=== PATIENT | female | born 1990 | race African-American/Black ===

== ENCOUNTER 2017-02-07 08:18 | Emergency (ER) | payer OTHER ==
[2017-02-07 08:26] VITALS: BP 119/73
--- NOTE | 2017-02-08 10:34 | ED ---
Jammie Carroll Matthew, scribed for Diego Castro MD on 02/07/17 at 0926 . GI/ HPI - HPI Summary HPI Summary: A 26 y/o female presents to the ED with c/o of blood in her stools since this morning. She saw streaks of blood in the stool. Associated symptoms include abdominal pain for the past 2 days, which is described as cramping. Initially 2 days ago, she was experiencing dizziness and fatigue in the mornings followed by chills at night. She then went to her PCP and was prescribed an Abx to begin tomorrow if her symptoms didn't improve. Associated symptoms today include diarrhea - described as watery beginning 24 hours ago, nausea, fever, and body aches. The patient denies vomiting and abdominal pain with palpation. - History of Current Complaint Chief Complaint: EDAbdPain Time Seen by Provider: 02/07/17 08:36 Stated Complaint: BLOOD IN STOOL Hx Obtained From: Patient Onset/Duration: Started Days Ago, Atraumatic, Still Present Timing: Constant Severity: Moderate Current Severity: Moderate Pain Intensity: 8 Location of Pain: Diffuse Pain Characteristics: Cramping Associated Signs and Symptoms: Positive: Dizziness, Nausea, Blood-Streaked Stool , Blood w/Stool, Diarrhea - described as watery, Fever, Chills, Abdominal Pain, Other: - Fatigue. Negative: Vomiting - Allergy/Home Medications Allergies/Adverse Reactions: Allergies Allergy/AdvReac Type Severity Reaction Status Date / Time Dicyclomine Allergy Anaphylatic Verified 02/07/17 08:20 Shock PMH/Surg Hx/FS Hx/Imm Hx Endocrine/Hematology History: Denies: Hx Diabetes, Hx Thyroid Disease Cardiovascular History: Denies: Hx Hypertension Respiratory History: Denies: Hx Asthma, Hx Chronic Obstructive Pulmonary Disease (COPD) GI History: Denies: Hx Ulcer Infectious Disease History: No Infectious Disease History: Denies: Hx Clostridium Difficile, Hx Hepatitis, Hx Human Immunodeficiency Virus (HIV), Hx of Known/Suspected MRSA, Hx Shingles, Hx Tuberculosis, Hx Known/ Suspected VRE, Hx Known/Suspected VRSA, History Other Infectious Disease, Traveled Outside the [place] in Last 30 Days - Family History Known Family History: Positive: Unknown - Social History Alcohol Use: Occasionally Substance Use Type: Reports: None Smoking Status (MU): Current Some Day Smoker Amount Used/How Often: every 2-3 mos Review of Systems Positive: Fever, Chills Eyes: Negative ENT: Negative Cardiovascular: Negative Respiratory: Negative Positive: Abdominal Pain, Diarrhea - described as watery , Nausea. Negative: Vomiting Genitourinary: Other - Blood w/ stool Positive: Myalgia - Body aches Skin: Negative Neurological: Other - Dizziness Psychological: Normal All Other Systems Reviewed And Are Negative: Yes Physical Exam Triage Information Reviewed: Yes Vital Signs On Initial Exam: Initial Vitals Temp Pulse Resp BP Pulse Ox 96.7 F 91 18 119/73 100 02/07/17 08:21 02/07/17 08:21 02/07/17 08:21 02/07/17 08:21 02/07/17 08:21 Vital Signs Reviewed: Yes Appearance: Positive: Well-Appearing, No Pain Distress Skin: Positive: Warm, Dry Head/Face: Positive: Normal Head/Face Inspection Eyes: Positive: Normal ENT: Positive: Normal ENT inspection Neck: Positive: Supple Respiratory/Lung Sounds: Positive: Clear to Auscultation, Breath Sounds Present Cardiovascular: Positive: RRR, Pulses are Symmetrical in both Upper and Lower Extremities Abdomen Description: Positive: Nontender, Soft Bowel Sounds: Positive: Present Musculoskeletal: Positive: Normal Neurological: Positive: Normal Psychiatric: Positive: Affect/Mood Appropriate Diagnostics - Vital Signs Vital Signs Temp Pulse Resp BP Pulse Ox 02/07/17 08:21 96.7 F 91 18 119/73 100 - Laboratory Lab Statement: Any lab studies that have been ordered have been reviewed, and results considered in the medical decision making process. GIGU Course/Dx - Course Course Of Treatment: Ms. Tolentino presented with bloody diarrhea. She was unwilling to have any W/U or therapy. I wanted to start her on Cipro because of the blood and sent a script but she left hurriedly and I'm not sure she will pick it up. - Diagnoses Provider Diagnoses: Dysentery Discharge - Discharge Plan Condition: Stable Disposition: AGAINST MEDICAL ADVICE Prescriptions: Ciprofloxacin TAB* [Cipro Tab*] 500 mg PO BID #20 tab Patient Education Materials: Gastroenteritis (ED), Ciprofloxacin (By mouth) Referrals: Alverto Del Rio MD [Medical Doctor] - 3 Days Additional Instructions: Please follow-up with your primary care physician in 3 days. The documentation as recorded by the Jammie linton Matthew accurately reflects the service I personally performed and the decisions made by me, Digeo Castro MD.
== END 2017-02-07 10:14 | disposition left against medical advice (07) ==
LOC: ED 08:18
DX: A09 Infectious gastroenteritis and colitis, unspecified (principal); R50.9 Fever, unspecified; R10.9 Unspecified abdominal pain; R19.7 Diarrhea, unspecified; R11.0 Nausea; R42 Dizziness and giddiness
CPT/HCPCS: 99282

== ENCOUNTER 2017-03-23 14:59 | Inpatient (IN) | payer OTHER ==
[2017-03-23] MEDS ORDERED: Ondansetron INJ* 2 MG/ML VIAL IV ONE ×2 (18:03→21:16)
[2017-03-23] MEDS ORDERED: Morphine INJ* 4 MG/ML 1 ML SYRINGE IV ONE ×2 (18:03→21:27)
[2017-03-23] MEDS ORDERED: NS 0.9% 1000 ML* 1,000 ML IV ONE (18:04)
[2017-03-23 18:09] LABS: Urine Bacteria Absent (Absent); Urine Bilirubin Negative (Negative); Urine Glucose Negative (Negative); Urine Nitrite Negative (Negative)
[2017-03-23 18:12] LABS: Hematocrit 38 % (35-47); Hemoglobin 12.1 g/dl (12.0-16.0); Mean Corpuscular HGB Conc 32 g/dl (31-36); Mean Corpuscular Hemoglobin 25 pg (27-31); Mean Corpuscular Volume 80 fL (80-97); Mean Platelet Volume 8 um3 (7.4-10.4); Red Blood Count 4.75 10^6/ul (4.0-5.4); Red Cell Distribution Width 15 % (10.5-15)
[2017-03-23 18:14] LABS: Add Diff/Slide Review? Slide Review Added; Comments Flag Yes
[2017-03-23 18:29] LABS: Albumin 3.9 g/dL (3.2-5.2); BUN/Creatinine Ratio 24.7 (8-20); C Reactive Protein 5.37 mg/L (< 5.00); Calcium 8.9 mg/dL (8.6-10.3); EGFR African American 117.5 (>60); EGFR Non-African American 91.3 (>60); Globulin 3.4 g/dL (2-4); Potassium 4.3 mmol/L (3.5-5.0); Total Bilirubin 0.3 mg/dL (0.2-1.0); Total Protein 7.3 g/dL (6.4-8.9)
[2017-03-23] MEDS ORDERED: Iohexol 300* (CONTRAST) 10 ML SDV IV ONE (19:02)
--- NOTE | 2017-03-23 20:34 | RAD ---
INDICATION: Diarrhea with C. difficile. Assess for colitis and abscess. COMPARISON: January 18, 2014 CT. TECHNIQUE: Multidetector CT images were obtained from the lung bases to the ischial tuberosities with 121 mL Omnipaque 300 IV and oral contrast. Multiplanar reformation. REPORT: Unremarkable visualized inferior thorax. 0.7 cm diameter hypodense lesion at the subcapsular RIGHT anterior hepatic segment is only mildly enlarged compared with the 2013 exam without concern. No additional focal hepatic lesions or biliary dilatation. Unremarkable gallbladder, pancreas, spleen. Negative for CT abnormality of the upper GI, small bowel, or retrocecal appendix. Enteric contrast extends to the proximal transverse colon. The colon is unremarkable through the descending segment. While incomplete distention limits assessment there is suggestion of mild long segment mural thickening at the sigmoid colon new compared with the prior exam. Negative for colonic diverticulosis or appreciable perienteric inflammatory change. Negative for ascites, free air, hernias. Normal adrenal glands. Unremarkable kidneys with symmetric nephrograms and pyelograms. Unremarkable nondilated ureters and partially distended urinary bladder. Anteverted uterus with IUD in place. Unremarkable adnexal regions. Multiple RIGHT lower quadrant lymph nodes measuring up to 1.1 cm diameter. Negative for retroperitoneal lymphadenopathy. Normal diameter abdominal aorta and iliac arteries. Physiologic partial distention of the IVC. Negative for suspicious osseous lesions. IMPRESSION: 1. While incompletely distention limits assessment there is suggestion of mild long segment mural thickening of the sigmoid colon new compared with the January 18, 2014 exam. Consider infectious colitis as well as potential inflammatory bowel disease. 2. Few RIGHT lower quadrant mesenteric lymph nodes measuring up to 1.1 cm short axis diameter are only mildly enlarged compared with the 2013 exam and likely reactive.
[2017-03-23] MEDS ORDERED: metroNIDAZOLE IV 500 MG/100ML* 500 MG/100 ML BAG IVPB ONE (21:27)
--- NOTE | 2017-03-23 21:29 | ED ---
Madeline Carroll Alok, scribed for Bobby Turcios MD on 03/23/17 at 2043 . Progress - Progress Note Progress Note: Abd/Pel CT - IMPRESSION: 1. While incompletely distention limits assessment there is suggestion of mild long segment mural thickening of the sigmoid colon new compared with the December exam. Consider infectious colitis as well as potential inflammatory bowel disease. 2. Few RIGHT lower quadrant mesenteric lymph nodes measuring up to 1.1 cm short axis diameter are only mildly enlarged compared with the 2013 exam and likely reactive. dx infectious colitis admit hospitalist stable - EKG/XRAY/CT CT: Abd/Pel CT - See note Course/Dx - Diagnoses Provider Diagnoses: Abdominal pain The documentation as recorded by the Madeline linton Alok accurately reflects the service I personally performed and the decisions made by me, Bobby Turcios MD.
[2017-03-23] MEDS ORDERED: NS 0.9% 1000 ML* 2,000 ML IV ONE (21:39)
[2017-03-23] MEDS ORDERED: Morphine INJ* 4 MG/ML 1 ML SYRINGE IV PRN (21:51)
[2017-03-23] MEDS: Vancomycin CAP* 125 MG CAP PO SCH (22:57)
[2017-03-24] MEDS: Ondansetron INJ* 2 MG/ML VIAL IV PRN ×4 (00:13→19:39)
--- NOTE | 2017-03-24 00:29 | HP ---
HOSPITAL MEDICINE HISTORY AND PHYSICAL: DATE OF ADMISSION: 03/23/17 PRIMARY CARE PHYSICIAN: Dr. Alverto Del Rio. ATTENDING PHYSICIAN: Juan Rocha MD *(dictation provided by Belkis Eastman NP) CHIEF COMPLIANT: Diarrhea. HISTORY OF PRESENT ILLNESS: Ms. Tolentino is a 26-year-old female with no significant past medical history who originally presented to our hospital on with complaint of blood in the stool and abdominal pain. She states that she had seen her primary care physician and was started on antibiotics. It was felt that she likely had gastroenteritis and Dr. Castro concurred that she should start Cipro, which had been provided to her by her primary care physician. Ms. Tolentino states that she took her Cipro and her symptoms resolved; however, shortly thereafter, she developed diarrhea that was quite severe. She was having 10 to 12 bowel movements per day. She saw her primary care physician and had a positive culture for C. difficile on 03/10/17. I also note that culture did show positivity for Klebsiella oxytoca. The patient was started on Flagyl orally. She stated that her diarrhea did resolve. She states that despite the severity of the diarrhea she was having that she did not fel unwell in [facility]. She felt that the diarrhea did taper off. She finished her Flagyl 2 to 3 days ago and today noted the onset of severe diarrhea again with at least 12 bloody bowel movements today. Whereas before, she did not fell unwell with the diarrhea, now she feels quite sick. She feels achy and feverish. She denies any nausea. She has lower abdominal pain with cramping. She has myalgias and arthralgias. In the emergency room, Ms. Tolentino had a repeat cultures drawn and her stool cultures sent and those are pending. The stool occult blood are positive. She had a CT abdomen and pelvis, which showed concern for mild long segment mural thickening of the sigmoid colon, which is new. She has a very mild leukocytosis at 12. Her CRP is not elevated at only 5.37. She is febrile with a temperature of 101.2. She is not tachycardic. Her blood pressure is running on the lower side, currently 108/62. PAST MEDICAL HISTORY: C. difficile colitis, diagnosed 03/10/17, treated with Flagyl. MEDICATIONS: 1. Prozac 40 mg p.o. daily. 2. Gabapentin 600 mg p.o. q.i.d. 3. Lactobacillus daily. 4. Clonidine 0.1 mg p.o. daily p.r.n. ALLERGIES: To DICYCLOMINE. FAMILY HISTORY: The patient reports her parents are alive and well, shows no pertinent family history. SOCIAL HISTORY: No reported alcohol, tobacco, or drug use. The patient is a graduate of [employer] and is currently here at the [email or web address]. REVIEW OF SYSTEMS: A 14-point review of systems was completed with Ms. Tolentino and all those not mentioned above were negative. PHYSICAL EXAMINATION GENERAL: Ms. Tolentino is lying in bed. She is in no acute distress. She is calm and cooperative to my examination. VITAL SIGNS: Temperature 101.2, pulse rate 95, respiratory rate 17, O2 saturation 99% on room air, and blood pressure 108/62. LUNGS: Clear to auscultation bilaterally with no accessory muscle use and good aeration. HEART: S1 and S2. No murmur, rub, or gallop and regular. ABDOMEN: Soft. It is tender to palpation in the lower abdomen. Bowel sounds are positive. EXTREMITIES: No cyanosis or edema. NEURO: She is alert and oriented x3. She moves all extremities equally. There is no facial asymmetry or focal weakness. Extraocular movements are intact. SKIN: Intact. DIAGNOSTIC STUDIES/LAB DATA: WBC 12.0, hemoglobin 12.1, hematocrit 38, and platelet count 384. Sodium 133, potassium 4.3, chloride 105, serum bicarbonate 23, BUN 19, creatinine 0.76, glucose 121, and lactic acid 0.9. CRP 5.37. Urine shows trace leuk esterase only. Abdomen and pelvis CT is read as follows, "While incomplete distention limits the assessment, there is suggestion of mild long segment mural thickening of the sigmoid colon, new compared with the 01/18/14 exam. Consider infectious colitis as well as potential inflammatory bowel disease. A few right lower quadrant mesenteric lymph nodes, measuring up to 1.1 cm in the short axis diameter are only mildly enlarged, compared with the 2014 exam and likely reactive." ASSESSMENT AND PLAN: Ms. Tolentino is a 26-year-old female who was treated with ciprofloxacin for diarrhea and fever, and thereafter developed worsening diarrhea and C. difficile colitis. She has been treated with Flagyl, but at the conclusion of the Flagyl, she is now again having severe diarrhea up to 12 bouts per day. Our plans are for inpatient admission to the hospital as I expect her length of stay to be greater than 2 days for the followin. C. difficile colitis: Plan to treat with IV Flagyl and oral vancomycin due to severity for illness. I do note that there is Klebsiella oxytoca on the stool culture from 03/10/17 as well. Plan to consult Infectious Diseases tomorrow if Dr. Allen is available for his consultation. The patient will have intravenous fluid. She has had 3 L of we will continue with maintenance fluids and additional fluid as need. Her lactic acid is normal. Blood cultures have been sent. Start pain medications p.r.n. 2. DVT prophylaxis: With early mobility. 3. Disposition: To medical floor. TIME SPENT: Approximately 60 minutes was spent in the admission of this patient , more than half of the time was spent with the patient at the bedside reviewing the events leading up to this hospitalization, performing the physical examination, and reviewing my plan of care. BELKIS EASTMAN NP CC: Dr. Del Rio* [id number]/[facility] #: [id number] SUL[place]
[2017-03-24] MEDS: Acetaminophen TAB* 325 MG PO PRN ×3 (01:59→18:14)
[2017-03-24] MEDS ORDERED: HYDROmorphone* 2 MG/ML 1 ML SYR ONE (03:13)
[2017-03-24] MEDS ORDERED: diPHENhydraMINE IV* 50 MG/ML 1 ml VIAL (BENADRYL) ONE (05:12)
[2017-03-24] MEDS ORDERED: diPHENhydraMINE PO* 50 MG ONE (05:15)
[2017-03-24] MEDS: diPHENhydraMINE PO* 50 MG PO ONE ×2 (05:16→05:21)
[2017-03-24] MEDS: metroNIDAZOLE IV 500 MG/100ML* 500 MG/100 ML BAG IVPB SCH ×3 (05:32→21:52)
[2017-03-24] MEDS: Morphine INJ* 2 MG/ML 1 ML SYRINGE IV PRN ×4 (05:33→13:30)
[2017-03-24 06:58] LABS: Hematocrit 35 % (35-47); Hemoglobin 11.2 g/dl (12.0-16.0); Mean Corpuscular HGB Conc 32 g/dl (31-36); Mean Corpuscular Hemoglobin 26 pg (27-31); Mean Corpuscular Volume 81 fL (80-97); Mean Platelet Volume 7 um3 (7.4-10.4); Red Blood Count 4.33 10^6/ul (4.0-5.4); Red Cell Distribution Width 15 % (10.5-15)
[2017-03-24 07:38] LABS: BUN/Creatinine Ratio 13.5 (8-20); Calcium 8.5 mg/dL (8.6-10.3); EGFR Non-African American 95.6 (>60)
[2017-03-24 07:43] LABS: Potassium 3.9 mmol/L (3.5-5.0)
[2017-03-24] MEDS ORDERED: PROCHLORPERAZINE INJ 5 MG/ML 2 ML VIAL ONE (09:22)
[2017-03-24] MEDS: PROCHLORPERAZINE INJ 5 MG/ML 2 ML VIAL IV PRN ×3 (09:31→22:33)
[2017-03-24] MEDS: Vancomycin CAP* 125 MG CAP PO SCH ×4 (10:41→21:03)
[2017-03-24] MEDS: Gabapentin CAP(*) 300 MG PO SCH ×4 (11:23→21:03)
[2017-03-24] MEDS: FLUoxetine CAP* 20 MG PO SCH (13:31)
--- NOTE | 2017-03-24 14:04 | CONS ---
CONSULTATION REPORT: DATE OF CONSULT: 03/24/17 REQUESTING PROVIDER: Belkis Eastman NP. CONSULTING SERVICE: Infectious Disease. REASON FOR CONSULTATION: Diarrhea, abdominal pain, fever. IMPRESSION: 1. Approximately 3 weeks of blood diarrhea, sweats, fever, anorexia, tenesmus, partial improvement with Cipro and then with Flagyl, but no resolution of any symptoms. The differential diagnosis includes bacterial colitis, Clostridium difficile infection, though with a degree of bloody stool that seemed a little bit unlikely as well as lack of significant response to Flagyl, she did grow Klebsiella oxytoca. Stool culture at the start of her illness which is associated with an antibiotic associated diarrhea, the treatment of which is to stop antibiotics. It could be that she had an initial viral or bacterial colitis treated with Cipro that then led to flare-up of this colitis due to Klebsiella, which is known to cause right-sided abdominal pain and bloody area which she has; however, she also has inflammation of the sigmoid colon on a CT scan, which I think is less typical of Klebsiella-related antibiotic associated diarrhea. Noninfectious considerations including inflammatory bowel disease are on the differential diagnosis. 2. Diffuse abdominal pain. 3. Fever. Depression. RECOMMENDATION: 1. Treated with vancomycin and IV Flagyl while awaiting the C. diff test to see if there is any therapeutic response that would suggest C. difficile is primary pathogen here. They are not active against Klebsiella, so in effect we are also stopping any antibiotics that would continue to precipitate an antibiotic associated diarrhea due to Klebsiella infection. If she is not having any improvement and all the stool testing is negative, it would be important to ask GI to see her and consider a flexible sigmoidoscopy for biopsy. HISTORY OF PRESENT ILLNESS: This is a 26-year-old woman with about 3 weeks of diarrhea, admitted with worsening diarrhea and abdominal pain. Her last formed stool was a little over 3 weeks, then she developed bloody diarrhea multiple times a day with some urgency. She had chills, sweats, lost her appetite. She was treated with oral ciprofloxacin by her primary care doctor and she had a little bit of improvement but did not get back to even soft stools, but after she stopped, it seemed to become more severe, 10 to 12 bowel movements per day, so she saw her primary again. A C.diff PCR was positive, 03/10/17. A stool culture then grew Klebsiella oxytoca as well. She was started on oral Flagyl with a decrease in the frequency of stools, but stools did not become more formed and the abdominal pain did not go away. She could not eat either. After she stopped the Flagyl, she thinks the frequency got worse about 2 or 3 days later and now is back to having 10 to 12 bloody bowel movements a day with diffuse abdominal pain, but worse on the right and is crampy in nature as high as 10/10. She has had fevers, chills, and sweats and no appetite. She has had no rash or joint pain. She does have a feeling of tenesmus and pain with a bowel movement. She came to the hospital yesterday. White blood cell count was 12,000. She was started on IV Flagyl and oral vanco. C-reactive protein was 5. Urinalysis was negative. She had a CT of the abdomen and pelvis that showed mural thickening of the sigmoid colon, new compared to 01/18/14. There are right lower quadrant mesenteric lymph nodes. PAST MEDICAL HISTORY: Depression. MEDICATIONS: 1. Tylenol. 2. Fluoxetine. 3. Gabapentin. 4. Vancomycin 125 mcg by mouth 4 times a day. 5. Flagyl 500 mg every 8 hours. ALLERGIES: DICYCLOMINE. FAMILY HISTORY: No recurrent infections. SOCIAL HISTORY: She lives in [place]. Works in an accounting firm. She has had no travel. She is recently from [place]. Has not been back there recently. She has had no new partners. Pet dog at home. REVIEW OF SYSTEMS: All negative, the full review of systems except as noted above. PHYSICAL EXAM: Temperature 37, heart rate 80, respiratory rate 18, blood pressure 102/58, O2 sat 100% on room air. In general, she is awake, appears uncomfortable. Neurologic: She is oriented x3. Follows all commands. HEENT: There is no conjunctival hemorrhage. Oropharynx is without lesions. Neck is supple without nuchal rigidity. Lymph Nodes: There is no cervical, supraclavicular, inguinal, axillary or epitrochleal lymphadenopathy. Heart is regular rate and rhythm without murmurs, rubs or gallops. Lungs are clear to auscultation bilaterally. Abdomen: Decreased bowel sounds throughout. The abdomen is soft. There is right-sided tenderness to palpation, not particularly right lower quadrant tenderness. There is no rebound. There is no bloating. Skin: There is no rash or splinter hemorrhages. Musculoskeletal : There is no spine tenderness to palpation or joint synovitis. DIAGNOSTIC STUDIES/LAB DATA: White blood cell count 9, hemoglobin 11, platelets 325. Creatinine is 0.7. Please see impressions and recommendations outlined above. Thanks for asking me to see Ms. Tolentino in consultation. [id number]/[facility] #: [id number] [place]
--- NOTE | 2017-03-24 14:52 | PN ---
Subjective Date of Service: 03/24/17 Interval History: This is an otherwise healthy 26 yo female who presented with c/o bloody diarrhea. Patient was treated with Flagyl for Cdiff after a positive stool sample, she was also positive for Klebsiella at that time as well. Her abd pain and stooling had improved with the Flagyl but became worse again ~2d after completing her Rx. She has been started on oral Vanco and IV Flagyl here and ID consult was requested. Patient reports little to no improvement in her symptoms since admission. She estimates she has had ~7 BMs today that are still grossly bloody. She is nauseated without vomiting. No appetite. Objective Active Medications: Acetaminophen (Tylenol Tab*) 650 mg PO Q6H PRN PRN Reason: FEVER/PAIN Last Admin: 03/24/17 12:40 Dose: 650 mg Fluoxetine HCl (Prozac Cap*) 40 mg PO DAILY [facility] Last Admin: 03/24/17 13:31 Dose: 40 mg Gabapentin (Neurontin Cap(*)) 600 mg PO QID [facility] Last Admin: 03/24/17 13:31 Dose: 600 mg Metronidazole/Sodium Chloride (Flagyl 500 Mg Ivpb*) 500 mg in 100 mls @ 100 mls /hr IVPB Q8H [facility] Last Admin: 03/24/17 13:31 Dose: 100 mls/hr Lactated Ringer's (Lactated Ringers 1000 Ml Bag*) 1,000 mls @ 150 mls/hr IV PER RATE [facility] Last Admin: 03/24/17 10:52 Dose: 150 mls/hr Morphine Sulfate (Morphine Inj (Syringe)*) 4 mg IV Q2H PRN PRN Reason: PAIN Ondansetron HCl (Zofran Inj*) 4 mg IV Q4H PRN PRN Reason: NAUSEA Last Admin: 03/24/17 10:40 Dose: 4 mg Prochlorperazine Edisylate (Compazine Inj*) 5 mg IV Q6H PRN PRN Reason: NAUSEA/VOMITING Last Admin: 03/24/17 09:31 Dose: 5 mg Vancomycin HCl (Vancomycin Cap*) 125 mg PO QID [facility] Last Admin: 03/24/17 13:31 Dose: 125 mg Vital Signs: Temp Pulse Resp BP Pulse Ox 100.9 F 86 18 92/51 100 03/24/17 12:16 03/24/17 12:16 03/24/17 13:31 03/24/17 12:16 03/24/17 12:16 Appearance: Uncomfortable appearing young female lying in a hospital bed Neck: NL Appearance and Movements; NL JVP Respiratory: Symmetrical Chest Expansion and Respiratory Effort, Clear to Auscultation Cardiovascular: NL Sounds; No Murmurs; No JVD, RRR Abdominal: - - abd soft, BS present, some diffuse TTP Extremities: No Edema Skin: No Rash or Ulcers Neurological: Alert and Oriented x 3 Result Diagrams: 03/24/17 06:51 03/24/17 06:51 Diagnostic Imaging: CT abd/pelvis - possible sigmoid colon thickening Assess/Plan/Problems-Billing Assessment: This is an otherwise healthy 26 yo female who presents with complaints of abd pain, bloody diarrhea after treatment for Cdiff - Patient Problems (1) Colitis Comment: Presumed infectious Appreciate ID consult Stool sample from 03/10 was positive for Cdiff and Klebsiella No improvement since admission with IV Flagyl and oral Vanco Repeat stool testing pending Cont current treatment Status and Disposition: Inpatient
[2017-03-24] MEDS: Morphine INJ* 4 MG/ML 1 ML SYRINGE IV PRN ×3 (16:16→22:34)
[2017-03-24] MEDS ORDERED: Ibuprofen TAB* 800 MG PO ONE ×2 (18:58→19:03)
[2017-03-25] MEDS: Ondansetron INJ* 2 MG/ML VIAL IV PRN ×4 (02:25→18:26)
[2017-03-25] MEDS: Morphine INJ* 4 MG/ML 1 ML SYRINGE IV PRN ×7 (02:26→23:03)
[2017-03-25] MEDS: metroNIDAZOLE IV 500 MG/100ML* 500 MG/100 ML BAG IVPB SCH ×2 (05:34→14:35)
[2017-03-25] MEDS: Gabapentin CAP(*) 300 MG PO SCH ×4 (08:11→20:16)
[2017-03-25] MEDS: Vancomycin CAP* 125 MG CAP PO SCH ×4 (08:12→20:17)
[2017-03-25] MEDS: FLUoxetine CAP* 20 MG PO SCH (08:12)
[2017-03-25] MEDS: PROCHLORPERAZINE INJ 5 MG/ML 2 ML VIAL IV PRN ×2 (09:06→15:56)
[2017-03-25 09:45] LABS: Hematocrit 32 % (35-47); Hemoglobin 10.1 g/dl (12.0-16.0); Mean Corpuscular HGB Conc 32 g/dl (31-36); Mean Corpuscular Hemoglobin 26 pg (27-31); Mean Corpuscular Volume 81 fL (80-97); Mean Platelet Volume 7 um3 (7.4-10.4); Red Blood Count 3.88 10^6/ul (4.0-5.4); Red Cell Distribution Width 15 % (10.5-15); White Blood Count 5.8 10^3/ul (3.5-10.8)
--- NOTE | 2017-03-25 09:57 | PN ---
Subjective Date of Service: 03/25/17 Interval History: Patient reports some improvement in symptoms. Still having freq diarrhea (~1/h ) but less blood present. Still having abd pain, but more tolerable. Still unable to tolerate anything orally. Reports dizziness and nausea with ambulation. Objective Active Medications: Acetaminophen (Tylenol Tab*) 650 mg PO Q6H PRN PRN Reason: FEVER/PAIN Last Admin: 03/24/17 18:14 Dose: 650 mg Fluoxetine HCl (Prozac Cap*) 40 mg PO DAILY [facility] Last Admin: 03/25/17 08:12 Dose: 40 mg Gabapentin (Neurontin Cap(*)) 600 mg PO QID [facility] Last Admin: 03/25/17 08:11 Dose: 600 mg Metronidazole/Sodium Chloride (Flagyl 500 Mg Ivpb*) 500 mg in 100 mls @ 100 mls /hr IVPB Q8H [facility] Last Admin: 03/25/17 05:34 Dose: 100 mls/hr Lactated Ringer's (Lactated Ringers 1000 Ml Bag*) 1,000 mls @ 150 mls/hr IV PER RATE [facility] Last Admin: 03/25/17 05:33 Dose: 150 mls/hr Morphine Sulfate (Morphine Inj (Syringe)*) 4 mg IV Q2H PRN PRN Reason: PAIN Last Admin: 03/25/17 09:07 Dose: 4 mg Ondansetron HCl (Zofran Inj*) 4 mg IV Q4H PRN PRN Reason: NAUSEA Last Admin: 03/25/17 06:42 Dose: 4 mg Prochlorperazine Edisylate (Compazine Inj*) 5 mg IV Q6H PRN PRN Reason: NAUSEA/VOMITING Last Admin: 03/25/17 09:06 Dose: 5 mg Vancomycin HCl (Vancomycin Cap*) 125 mg PO QID [facility] Last Admin: 03/25/17 08:12 Dose: 125 mg Vital Signs: Temp Pulse Resp BP Pulse Ox 98.0 F 74 18 113/67 100 03/25/17 08:40 03/25/17 08:40 03/25/17 09:07 03/25/17 08:40 03/25/17 08:40 Appearance: Ill appearing, but improved and occasionally smiling, in NAD Neck: NL Appearance and Movements; NL JVP Respiratory: Symmetrical Chest Expansion and Respiratory Effort, Clear to Auscultation Cardiovascular: NL Sounds; No Murmurs; No JVD, RRR Abdominal: - - abd soft, TTP, BS present, no distention Extremities: No Edema Neurological: Alert and Oriented x 3 Result Diagrams: 03/25/17 08:45 03/24/17 06:51 Microbiology and Other Data: Microbiology 03/23/17 22:37 Aerobic Blood Culture - Preliminary Blood Venous No Growth Day 1 Anaerobic Blood Culture - Preliminary No Growth Day 1 03/23/17 22:37 Aerobic Blood Culture - Preliminary Blood Venous No Growth Day 1 Anaerobic Blood Culture - Preliminary No Growth Day 1 Diagnostic Imaging: CT abd/pelvis - possible sigmoid colon thickening Assess/Plan/Problems-Billing Assessment: This is an otherwise healthy 26 yo female who presents with complaints of abd pain, bloody diarrhea after treatment for Cdiff - Patient Problems (1) Colitis Comment: Likely Cdiff colitis Appreciate ID consult Stool sample from 03/10 was positive for Cdiff and Klebsiella Repeat stool testing positive for Cdiff, cx still pending Now showing signs of clinical improvement with IV Flagyl and oral Vanco Cont current treatment Status and Disposition: Inpatient. Anticipate discharge in 2-3 days when able to tolerate oral intake.
[2017-03-25 09:58] LABS: BUN/Creatinine Ratio 9.1 (8-20); Calcium 8.3 mg/dL (8.6-10.3); EGFR African American 140.3 (>60); EGFR Non-African American 109.1 (>60); Potassium 3.2 mmol/L (3.5-5.0)
[2017-03-25 12:24] LABS: Magnesium 1.7 mg/dL (1.9-2.7)
[2017-03-25] MEDS ORDERED: Magnesium Sulfate 2 GM IV* 2 GM/50 ML BAG IVPB ONE (12:56)
--- NOTE | 2017-03-25 15:50 | PN ---
Progress Note - Progress Note SOAP: Subjective: DOS: 03/25/17 CC: diarrhea HPI: 26 yo woman with prolonged diarrhea, treated with cipro, then pongoing symptoms including blood in stool, outpatient Cdif PCR pos and K.oxyctoca in stool, treated with flagyl with slight improvement, worsened after she stopped it. Admitted with with abd pain, right sided, multiple bloody stools per hour. Today 3 BM so far, less abd pain and no more blood in stool. Ate jello. No fever or rash. Objective: [] Vital Signs Temp 36.9 C 03/25/17 11:39 Pulse 64 03/25/17 11:39 Resp 14 03/25/17 14:13 BP 107/65 03/25/17 11:39 Pulse Ox 99 03/25/17 11:39 Intake & Output 03/24/17 03/25/17 03/25/17 18:59 06:59 18:59 Intake Total 1660 1624 440 Output Total 0 Balance 1660 1624 440 Intake: IV Fluids 1660 1515 ABX - FLAGYL 160 LR 1500 1515 IVPB 109 ABX - FLAGYL 109 Oral 0 0 440 Output: Urine 0 Other: Estimated Stool Amount Medium # Voids 3 2 Gen:awake, no distress HEENT:MMM no lesions Neck:supple Heart:RRR no murmur Lungs:CTA BL Abd:+BS mild right side tenderness no rebound, no mass Skin: No rash MSK: no joint synovitis Laboratory Results - last 24 hr 03/25/17 03/25/17 08:45 08:45 WBC 5.8 RBC 3.88 L Hgb 10.1 L Hct 32 L MCV 81 MCH 26 L MCHC 32 RDW 15 Plt Count 261 MPV 7 L Neut % (Auto) 84.0 H Lymph % (Auto) 9.2 L Osborne % (Auto) 5.2 Eos % (Auto) 0.9 Baso % (Auto) 0.7 Absolute Neuts (auto) 4.8 Absolute Lymphs (auto) 0.5 L Absolute Monos (auto) 0.3 Absolute Eos (auto) 0.1 Absolute Basos (auto) 0 Absolute Nucleated RBC 0.01 Nucleated RBC % 0.1 Sodium 136 Potassium 3.2 L Chloride 105 Carbon Dioxide 25 Anion Gap 6 BUN 6 Creatinine 0.66 Est GFR ( Amer) 140.3 Est GFR (Non-Af Amer) 109.1 BUN/Creatinine Ratio 9.1 Glucose 142 H Calcium 8.3 L Magnesium 1.7 L Microbiology 03/23/17 16:10 Stool Culture - Final Stool Stool Gross Appearance - Final Shiga Toxin I & II - Final Negative Shiga Toxin 1 & 2 C. difficile DNA Amplification - Final 027 Presumptive POSITIVE Toxigenic C.diff POSITIVE Stool Occult Blood (MICHAEL) - Final 03/23/17 22:37 Aerobic Blood Culture - Preliminary Blood Venous No Growth Day 1 Anaerobic Blood Culture - Preliminary No Growth Day 1 03/23/17 22:37 Aerobic Blood Culture - Preliminary Blood Venous No Growth Day 1 Anaerobic Blood Culture - Preliminary No Growth Day 1 03/23/17 16:10 Urine Culture - Final Urine Assessment: 1. colitis, infectious, likely Cdif vs K oxytoca abx associated vs less likely IBD 2. abd pain due to #1, improving Plan: 1. continue vancomycin 125 mg PO 4 times daily x14 days assuming she continues to improve as she has in the last 24 hours 25 minutes floor time >50% face to face time counseling regarding test results and next steps in treatment and follow up. all questions answered.
[2017-03-25] MEDS: Acetaminophen TAB* 325 MG PO PRN (17:26)
[2017-03-25] MEDS ORDERED: diPHENhydraMINE PO* 25 MG ONE (23:16)
[2017-03-25] MEDS: diPHENhydraMINE PO* 25 MG PO PRN (23:18)
[2017-03-26] MEDS: Morphine INJ* 4 MG/ML 1 ML SYRINGE IV PRN ×2 (01:32→08:21)
[2017-03-26 05:46] LABS: Hematocrit 30 % (35-47); Hemoglobin 9.4 g/dl (12.0-16.0); Mean Corpuscular HGB Conc 32 g/dl (31-36); Mean Corpuscular Hemoglobin 26 pg (27-31); Mean Corpuscular Volume 81 fL (80-97); Mean Platelet Volume 7 um3 (7.4-10.4); Red Blood Count 3.65 10^6/ul (4.0-5.4); Red Cell Distribution Width 14 % (10.5-15); White Blood Count 4.1 10^3/ul (3.5-10.8)
[2017-03-26 05:59] LABS: BUN/Creatinine Ratio 4.3 (8-20); EGFR African American 133.3 (>60); EGFR Non-African American 103.7 (>60); Magnesium 1.7 mg/dL (1.9-2.7); Potassium 3.4 mmol/L (3.5-5.0)
[2017-03-26] MEDS ORDERED: Magnesium Sulf 4 GM/100 ML IV* 4,000 MG/100 ML BAG IVPB ONE (07:08)
[2017-03-26] MEDS: FLUoxetine CAP* 20 MG PO SCH (08:28)
[2017-03-26] MEDS: Gabapentin CAP(*) 300 MG PO SCH ×4 (08:28→20:36)
[2017-03-26] MEDS: Vancomycin CAP* 125 MG CAP PO SCH ×4 (08:28→20:36)
[2017-03-26] MEDS ORDERED: oxyCODONE TAB* 5 MG TAB PO PRN (10:41)
--- NOTE | 2017-03-26 10:47 | PN ---
Subjective Date of Service: 03/26/17 Interval History: Patient reports significant improvement in symptoms. Still having some abdominal pain and feels that she is getting incomplete relief from the morphine. Nausea improving, she is able to tolerate jello. She had 3 BMs during the day yesterday and 7 overnight, 1 small volume BM this am. No additional complaints. Objective Active Medications: Acetaminophen (Tylenol Tab*) 650 mg PO Q6H PRN PRN Reason: FEVER/PAIN Last Admin: 03/25/17 17:26 Dose: 650 mg Diphenhydramine HCl (Benadryl Po*) 25 mg PO Q4H PRN PRN Reason: ITCHING Last Admin: 03/25/17 23:18 Dose: 25 mg Fluoxetine HCl (Prozac Cap*) 40 mg PO DAILY [facility] Last Admin: 03/26/17 08:28 Dose: 40 mg Gabapentin (Neurontin Cap(*)) 600 mg PO QID [facility] Last Admin: 03/26/17 08:28 Dose: 600 mg Hydromorphone HCl (Dilaudid Iv*) 1 mg IV SLOW PU Q2H PRN PRN Reason: PAIN Ondansetron HCl (Zofran Inj*) 4 mg IV Q4H PRN PRN Reason: NAUSEA Last Admin: 03/25/17 18:26 Dose: 4 mg Oxycodone HCl (Roxycodone Tab*) 5 mg PO Q4H PRN PRN Reason: PAIN Prochlorperazine Edisylate (Compazine Inj*) 5 mg IV Q6H PRN PRN Reason: NAUSEA/VOMITING Last Admin: 03/25/17 15:56 Dose: 5 mg Vancomycin HCl (Vancomycin Cap*) 125 mg PO QID [facility] Last Admin: 03/26/17 08:28 Dose: 125 mg Vital Signs: Temp Pulse Resp BP Pulse Ox 98.7 F 66 16 121/80 99 03/26/17 07:20 03/26/17 07:20 03/26/17 08:28 03/26/17 07:20 03/26/17 07:20 Oxygen Devices in Use Now: None Appearance: Well appearing, sitting upright and smiling Respiratory: Symmetrical Chest Expansion and Respiratory Effort, Clear to Auscultation Cardiovascular: NL Sounds; No Murmurs; No JVD, RRR Abdominal: - - abd soft, some RLQ abd pain Extremities: No Edema Skin: No Rash or Ulcers Neurological: Alert and Oriented x 3 Result Diagrams: 03/26/17 05:31 03/26/17 05:31 Microbiology and Other Data: Microbiology 03/23/17 22:37 Aerobic Blood Culture - Preliminary Blood Venous No Growth Day 1 Anaerobic Blood Culture - Preliminary No Growth Day 1 03/23/17 22:37 Aerobic Blood Culture - Preliminary Blood Venous No Growth Day 1 Anaerobic Blood Culture - Preliminary No Growth Day 1 Diagnostic Imaging: CT abd/pelvis - possible sigmoid colon thickening Assess/Plan/Problems-Billing Assessment: This is an otherwise healthy 26 yo female who presents with complaints of abd pain, bloody diarrhea after treatment for Cdiff - Patient Problems (1) Colitis Comment: Likely Cdiff colitis Appreciate ID consult Stool sample from 03/10 was positive for Cdiff and Klebsiella Repeat stool testing positive for Cdiff, cx neg for additional pathogens Now showing signs of clinical improvement with IV Flagyl and oral Vanco IV Flagyl has been stopped Cont oral vanco Will trial advancing diet and stopping IVF Status and Disposition: Inpatient. Anticipate possible discharge tomorrow
--- NOTE | 2017-03-26 10:53 | PN ---
Progress Note - Progress Note SOAP: Subjective: DOS: 03/26/17 CC: diarrhea HPI: 26 yo woman with prolonged diarrhea, treated with cipro, then pongoing symptoms including blood in stool, outpatient Cdif PCR pos and K.oxyctoca in stool, treated with flagyl with slight improvement, worsened after she stopped it. Admitted with with abd pain, right sided, multiple bloody stools per hour. 7 Bm overnight, no blood, occasional abd cramp, worse on left, no fever or chills. Objective: [] Vital Signs Temp 37.1 C 03/26/17 07:20 Pulse 66 03/26/17 07:20 Resp 16 03/26/17 08:28 BP 121/80 03/26/17 07:20 Pulse Ox 99 03/26/17 07:20 Intake & Output 03/25/17 03/26/17 03/26/17 18:59 06:59 18:59 Intake Total 1600 1000 Output Total 0 Balance 1600 1000 Intake: IV Fluids 925 ABX - FLAGYL 100 LR 773 mag 52 Oral 675 1000 Output: Urine 0 Gen:awake, no distress HEENT:MMM no lesions Neck:supple Heart:RRR no murmur Lungs:CTA BL Abd:+BS mild right side tenderness no rebound, no mass Skin: No rash MSK: no joint synovitis Assessment: 1. colitis, infectious, likely Cdif vs K oxytoca abx associated vs less likely IBD 2. abd pain due to #1, improving Plan: 1. continue vancomycin 125 mg PO 4 times daily day 02/04 Discussed with Ayan OG
[2017-03-26] MEDS: HYDROmorphone* 1 MG/ML 1 ML SYR IV SLOW PU PRN ×5 (13:04→22:59)
[2017-03-26] MEDS: diPHENhydraMINE PO* 25 MG PO PRN ×3 (14:07→23:00)
[2017-03-26] MEDS: Ondansetron INJ* 2 MG/ML VIAL IV PRN ×2 (15:26→23:00)
[2017-03-26] MEDS: Nystatin SUSPENSION* 100000 UNITS/ML 5 ML UDC PO SCH ×2 (16:28→20:35)
--- NOTE | 2017-03-26 18:24 | ED ---
[place] Claudia, scribed for Garrett Landin MD on 03/23/17 at 1800 . Abdominal Pain/Female - HPI Summary HPI Summary: 26 year old female presents to the ED with abd pain and blood in stool. The pt states she was Dx with CDiff in January. Pt states the abd pain developed around 12pm today with increased blood in her diarrhea. Pt notes she finished her antibiotics a few weeks ago but she was on it for about 10 days. Pt denies any other associated Sx except for dizziness or alleviating or aggravating factors. - History of Current Complaint Chief Complaint: EDAbdPain Stated Complaint: BLOOD IN STOOL/DIZZY/CHILLS Hx Obtained From: Patient Hx Last Menstrual Period: MIRENA Onset/Duration: Gradual Onset, Still Present Pain Intensity: 8 Pain Scale Used: 0-10 Numeric Aggravating Factor(s): Nothing Alleviating Factor(s): Nothing Allergies/Adverse Reactions: Allergies Allergy/AdvReac Type Severity Reaction Status Date / Time Dicyclomine Allergy Anaphylatic Verified 02/07/17 08:20 Shock PMH/Surg Hx/FS Hx/Imm Hx Previously Healthy: Yes Endocrine/Hematology History: Denies: Hx Diabetes, Hx Thyroid Disease Cardiovascular History: Denies: Hx Hypertension Respiratory History: Denies: Hx Asthma, Hx Chronic Obstructive Pulmonary Disease (COPD) GI History: Denies: Hx Ulcer Infectious Disease History: No Infectious Disease History: Denies: Hx Clostridium Difficile, Hx Hepatitis, Hx Human Immunodeficiency Virus (HIV), Hx of Known/Suspected MRSA, Hx Shingles, Hx Tuberculosis, Hx Known/ Suspected VRE, Hx Known/Suspected VRSA, History Other Infectious Disease, Traveled Outside the [place] in Last 30 Days - Family History Known Family History: Positive: Unknown - Social History Occupation: Employed Full-time Lives: Alone Alcohol Use: None Substance Use Type: Reports: None Smoking Status (MU): Former Smoker Amount Used/How Often: every 2-3 mos Review of Systems Constitutional: Negative Eyes: Negative ENT: Negative Cardiovascular: Negative Respiratory: Negative Positive: Abdominal Pain, Other - blood in stool Genitourinary: Negative Musculoskeletal: Negative Skin: Negative Neurological: Other - dizziness Psychological: Normal All Other Systems Reviewed And Are Negative: Yes Physical Exam - Summary Physical Exam Summary: Constitutional: Well-developed, Well-nourished, Alert. (-) Distressed Skin: Warm, Dry HENT: Normocephalic; Atraumatic Eyes: Conjunctiva normal Neck: Musculoskeletal ROM normal neck. (-) JVD, (-) Stridor, (-) Tracheal deviation Cardio: Rhythm regular, rate normal, Heart sounds normal; Intact distal pulses; The pedal pulses are 2+ and symmetric. Radial pulses are 2+ and symmetric. (-) Murmur Pulmonary/Chest wall: Effort normal. (-) Respiratory distress, (-) Wheezes, (-) Rales Abd: Soft (-) Distension, (-) Guarding, (-) Rebound BILATERAL LOWER ABDOMEN TENDERNESS Musculoskeletal: (-) Edema Lymph: (-) Cervical adenopathy Neuro: Alert, Oriented x3 Psych: Mood and affect Normal Triage Information Reviewed: Yes Vital Signs On Initial Exam: Initial Vitals Temp Pulse Resp BP Pulse Ox 98.2 F 90 15 112/58 100 03/23/17 15:04 03/23/17 15:04 03/23/17 15:04 03/23/17 15:04 03/23/17 15:04 Vital Signs Reviewed: Yes - Johnston Coma Scale Coma Scale Total: 15 Diagnostics - Vital Signs Vital Signs Temp Pulse Resp BP Pulse Ox 03/23/17 17:15 79 100 03/23/17 17:13 109/61 03/23/17 15:04 98.2 F 90 15 112/58 100 - Laboratory Lab Results: Lab Results 03/23/17 03/23/17 03/23/17 Range/Units 16:10 18:00 18:00 WBC 12.0 H (3.5-10.8) 10^3/ul RBC 4.75 (4.0-5.4) 10^6/ul Hgb 12.1 (12.0-16.0) g/dl Hct 38 (35-47) % MCV 80 (80-97) fL MCH 25 L (27-31) pg MCHC 32 (31-36) g/dl RDW 15 (10.5-15) % Plt Count 384 (150-450) 10^3/ul MPV 8 (7.4-10.4) um3 Neut % (Auto) 93.3 H (38-83) % Lymph % (Auto) 2.5 L (25-47) % Archer % (Auto) 3.5 (1-9) % Eos % (Auto) 0.1 (0-6) % Baso % (Auto) 0.6 (0-2) % Absolute Neuts (auto) 11.2 H (1.5-7.7) 10^3/ul Absolute Lymphs (auto) 0.3 L (1.0-4.8) 10^3/ul Absolute Monos (auto) 0.4 (0-0.8) 10^3/ul Absolute Eos (auto) 0 (0-0.6) 10^3/ul Absolute Basos (auto) 0.1 (0-0.2) 10^3/ul Absolute Nucleated RBC 0 10^3/ul Nucleated RBC % 0 Sodium 133 (133-145) mmol/L Potassium 4.3 (3.5-5.0) mmol/L Chloride 105 (101-111) mmol/L Carbon Dioxide 23 (22-32) mmol/L Anion Gap 5 (2-11) mmol/L BUN 19 (6-24) mg/dL Creatinine 0.77 (0.51-0.95) mg/dL Est GFR ( Amer) 117.5 (>60) Est GFR (Non-Af Amer) 91.3 (>60) BUN/Creatinine Ratio 24.7 H (8-20) Glucose 121 H (70-100) mg/dL Lactic Acid (0.5-2.0) mmol/L Calcium 8.9 (8.6-10.3) mg/dL Total Bilirubin 0.30 (0.2-1.0) mg/dL AST 14 (13-39) U/L ALT 11 (7-52) U/L Alkaline Phosphatase 45 (34-104) U/L C-Reactive Protein 5.37 H (< 5.00) mg/L Total Protein 7.3 (6.4-8.9) g/dL Albumin 3.9 (3.2-5.2) g/dL Globulin 3.4 (2-4) g/dL Albumin/Globulin Ratio 1.1 (1-3) Lipase 31 (11.0-82.0) U/L Urine Color Yellow Urine Appearance Turbid Urine pH 5.0 (5-9) Ur Specific [place] 1.029 (1.010-1.030) Urine Protein Negative (Negative) Urine Ketones Negative (Negative) Urine Blood Negative (Negative) Urine Nitrate Negative (Negative) Urine Bilirubin Negative (Negative) Urine Urobilinogen Negative (Negative) Ur Leukocyte Esterase Trace H (Negative) Urine WBC (Auto) Absent (Absent) Urine RBC (Auto) Absent (Absent) Ur Squamous Epith Cells Present H (Absent) Urine Bacteria Absent (Absent) Urine Glucose Negative (Negative) 03/23/17 Range/Units 18:00 WBC (3.5-10.8) 10^3/ul RBC (4.0-5.4) 10^6/ul Hgb (12.0-16.0) g/dl Hct (35-47) % MCV (80-97) fL MCH (27-31) pg MCHC (31-36) g/dl RDW (10.5-15) % Plt Count (150-450) 10^3/ul MPV (7.4-10.4) um3 Neut % (Auto) (38-83) % Lymph % (Auto) (25-47) % Archer % (Auto) (1-9) % Eos % (Auto) (0-6) % Baso % (Auto) (0-2) % Absolute Neuts (auto) (1.5-7.7) 10^3/ul Absolute Lymphs (auto) (1.0-4.8) 10^3/ul Absolute Monos (auto) (0-0.8) 10^3/ul Absolute Eos (auto) (0-0.6) 10^3/ul Absolute Basos (auto) (0-0.2) 10^3/ul Absolute Nucleated RBC 10^3/ul Nucleated RBC % Sodium (133-145) mmol/L Potassium (3.5-5.0) mmol/L Chloride (101-111) mmol/L Carbon Dioxide (22-32) mmol/L Anion Gap (2-11) mmol/L BUN (6-24) mg/dL Creatinine (0.51-0.95) mg/dL Est GFR ( Amer) (>60) Est GFR (Non-Af Amer) (>60) BUN/Creatinine Ratio (8-20) Glucose (70-100) mg/dL Lactic Acid 0.9 (0.5-2.0) mmol/L Calcium (8.6-10.3) mg/dL Total Bilirubin (0.2-1.0) mg/dL AST (13-39) U/L ALT (7-52) U/L Alkaline Phosphatase (34-104) U/L C-Reactive Protein (< 5.00) mg/L Total Protein (6.4-8.9) g/dL Albumin (3.2-5.2) g/dL Globulin (2-4) g/dL Albumin/Globulin Ratio (1-3) Lipase (11.0-82.0) U/L Urine Color Urine Appearance Urine pH (5-9) Ur Specific [place] (1.010-1.030) Urine Protein (Negative) Urine Ketones (Negative) Urine Blood (Negative) Urine Nitrate (Negative) Urine Bilirubin (Negative) Urine Urobilinogen (Negative) Ur Leukocyte Esterase (Negative) Urine WBC (Auto) (Absent) Urine RBC (Auto) (Absent) Ur Squamous Epith Cells (Absent) Urine Bacteria (Absent) Urine Glucose (Negative) Result Diagrams: 03/26/17 05:31 03/26/17 05:31 Lab Statement: Any lab studies that have been ordered have been reviewed, and results considered in the medical decision making process. Abdominal Pain Fem Course/Dx - Course Course Of Treatment: Pt is signed out awaiting CT abd pelvis. - Diagnoses Provider Diagnoses: Abdominal pain Discharge - Discharge Plan Condition: Stable Disposition: ADMITTED TO [facility] Discharge Disposition Comment: Sign-out at 7pm to Dr. Turcios awaiting CT Abd/ Pelvis The documentation as recorded by the [place] Claudia accurately reflects the service I personally performed and the decisions made by , Garrett Landin MD.
[2017-03-26] MEDS: PROCHLORPERAZINE INJ 5 MG/ML 2 ML VIAL IV PRN (20:35)
[2017-03-27] MEDS: HYDROmorphone* 1 MG/ML 1 ML SYR IV SLOW PU PRN (03:39)
[2017-03-27] MEDS: Ondansetron INJ* 2 MG/ML VIAL IV PRN (03:39)
[2017-03-27 06:33] LABS: BUN/Creatinine Ratio 4.2 (8-20); Calcium 8.4 mg/dL (8.6-10.3); EGFR Non-African American 100.3 (>60); Magnesium 1.9 mg/dL (1.9-2.7); Potassium 3.7 mmol/L (3.5-5.0)
[2017-03-27 07:08] VITALS: BP 117/76
[2017-03-27] MEDS: FLUoxetine CAP* 20 MG PO SCH (08:42)
[2017-03-27] MEDS: Gabapentin CAP(*) 300 MG PO SCH (08:43)
[2017-03-27] MEDS: Vancomycin CAP* 125 MG CAP PO SCH (08:43)
[2017-03-27] MEDS: Nystatin SUSPENSION* 100000 UNITS/ML 5 ML UDC PO SCH (08:43)
--- NOTE | 2017-03-27 11:09 | DS ---
DISCHARGE SUMMARY: DATE OF ADMISSION: 03/23/17 DATE OF DISCHARGE: 03/27/17 PRIMARY CARE PROVIDER: Dr. Del Rio. CONSULTING INFECTIOUS DISEASE SPECIALIST: Dr. Allen. DISCHARGING PROVIDER: EARLE Vargas. SUPERVISING PHYSICIAN: Dr. Joann Barahona. * (DICTATED BY EARLE VARGAS) PRIMARY DISCHARGE DIAGNOSES: 1. Clostridium difficile colitis. 2. Thrush. DISCHARGE MEDICATIONS: 1. Fluoxetine 40 mg p.o. daily. 2. Gabapentin 600 mg p.o. q.i.d. 3. Lactobacillus one capsule p.o. daily. 4. Nystatin 500,000 units p.o. q.i.d. x7 days. 5. Zofran 4 mg oral dissolvable tablets p.o. q.4 hours as needed for nausea. 6. Vancomycin 125 mg p.o. q.i.d. x4 weeks. 7. Clonidine 0.1 mg p.o. daily. 8. Oxycodone 5 mg p.o. q.4 hours as needed for pain. MEDICATION CHANGES: 1. P.r.n. Zofran. 2. P.r.n. oxycodone. 3. Vancomycin x4 weeks. 4. Nystatin oral suspension x7 days. HOSPITAL IMAGING: CT of the abdomen and pelvis demonstrates mural thickening of the sigmoid colon. Few right lower quadrant mesenteric lymph nodes measuring up to 1.1 cm. HOSPITAL COURSE: This is an otherwise healthy 26-year-old female who presented to the emergency department with complaints of abdominal pain and bloody diarrhea. The patient had been treated for what was presumed to be an infectious colitis by her primary care provider several weeks ago with ciprofloxacin. After completing the ciprofloxacin, she developed bloody diarrhea. Stool sample from that time was positive for C. diff as well as Klebsiella. The patient was treated with 2 weeks of oral Flagyl and her complaints of abdominal pain and diarrhea did improve slightly, although she continued to have loose stools, but no further blood or abdominal cramping. Two days after completing her Flagyl course, her abdominal pain and bloody diarrhea returned and was more severe. The patient was unable to tolerate anything orally and subsequently presented to the emergency department for evaluation. The patient had a moderate leukocytosis with a white blood cell count of 12,000 at the time of admission. No significant electrolyte abnormalities and just a mildly elevated CRP. CT of the abdomen and pelvis demonstrated some sigmoid colon thickening, but most of her pain was in the right lower quadrant. There were a few enlarged mesenteric lymph nodes in that region. Due to the patient's inability to tolerate anything orally and the severity of her abdominal pain and frequency of her stools, the patient was subsequently admitted to the hospital for presumed recurrence of C. diff colitis versus antibiotic- associated Klebsiella. The patient was empirically started on IV Flagyl and oral vancomycin. Repeat stool studies were performed, which were positive for C. diff. Stool culture was negative for any pathogens. The stool was positive for occult blood and blood cultures remained negative. The patient did improve clinically with Flagyl and vancomycin. IV Flagyl was eventually discontinued. The patient was able to tolerate a small volume of soft bland foods at the time of discharge. She is still having rather frequent watery bowel movements, less than 10 per day, and blood has since resolved and her pain was manageable. She had no further vomiting, but occasional nausea associated with eating. DISPOSITION: The patient is being discharged to home. Recommend a total of 2 weeks of oral vancomycin per Dr. Allen. The patient requires followup with Dr. Allen in approximately 1 week. Notified by the patient's outpatient pharmacy, [facility], that oral vancomycin is not covered and requires prior authorization. The patient is being discharged from the hospital with a 5-day supply and a call has been placed to her primary care provider to initiate prior authorization process. EARLE VARGAS CC: Dr. Del Rio; Dr. Trent Allen * [id number]/[facility] #: [id number] [facility]
--- NOTE | 2017-03-29 11:50 | PN ---
Hospitalist Progress Note Addendum to DC summary: Please note that length of vancomycin should be 2 weeks, prior documentation of 4 weeks is incorrect.
== END 2017-03-27 10:00 | disposition home or self-care (01) | DRG 248 ==
LOC: ED 14:59 → MED 21:50
PROVIDERS: ADMIT Hospitalist; ATTEND Hospitalist
DX: A04.7 Enterocolitis due to Clostridium difficile (principal); F32.9 Major depressive disorder, single episode, unspecified; B37.9 Candidiasis, unspecified; Z88.1 Allergy status to other antibiotic agents; Z87.891 Personal history of nicotine dependence; R40.2412 Glasgow coma scale score 13-15, at arrival to emergency department; R59.0 Localized enlarged lymph nodes
CPT/HCPCS: 36415; 74177; 80048; 80053; 81003; 81015; 82272; 83605; 83690; 83735; 85025; 86140; 87040; 87045; 87046; 87086; 87493; 87899; A9270-GY; J0780; J1170; J1200; J2270; J2405; J3480; Q9967